=== PATIENT | male | born 1940 | race Caucasian/White ===

== ENCOUNTER 2020-10-11 10:32 | Emergency (ER) | payer OTHER ==
[~2020-10-11] VITALS: Ht 180.3 cm; Wt 70.3 kg
[~2020-10-11 10:32] MED LIST: CIPRO250 M1 PO; NOHOMEMEDICATIONS; PHENERGAN 25 MG25 M1 PO; VICODIN 5-5001 EACH PO
== END 2020-10-11 10:36 ==
LOC: M.ERS 10:32
DX: Z79.899 Other long term (current) drug therapy; Z20.828 Contact with and (suspected) exposure to other viral communicable diseases